=== PATIENT | female | born 1990 | race Caucasian/White ===

== ENCOUNTER 2017-06-12 21:24 | Emergency (ER) | payer OTHER, SELFPAY ==
[~2017-06-12] VITALS: Ht 167.6 cm; Wt 88.9 kg
[2017-06-12 21:25] VITALS: BP 135/88
[2017-06-12] MEDS ORDERED: ONDANSETRON ODT 4 MG ONE (21:35)
[2017-06-12] MEDS ORDERED: ONDANSETRON ODT 4 MG PO ONE (22:00)
== END 2017-06-12 22:23 | disposition left against medical advice (07) ==
LOC: ED 21:30
DX: Z53.21 Procedure and treatment not carried out due to patient leaving prior to being seen by health care provider (principal)
CPT/HCPCS: Q0162